=== PATIENT | female | born 1995 | race Caucasian/White ===

== ENCOUNTER → 2022-02-17 17:56 | Observation (INO) ==
[2022-02-17 13:23] LABS: Basophils % 0.3 %; Eosinophils # 0.5 K/mcL (0.0-0.6); Hematocrit 27.3 % (35.3-44.9); Hemoglobin 8.3 g/dL (11.5-15.4); Immature Granulocytes % 0.3 % (0-4); Lymphocytes # 2.1 K/mcL (0.6-4.6); Lymphocytes % 18.1 %; Mean Corpuscular HGB Conc 30.4 g/dL (31.6-35.5); Mean Corpuscular Hemoglobin 24.3 pg (28.0-33.3); Mean Corpuscular Volume 80.1 fL (83.0-100.0); Mean Platelet Volume 10.8 fL (9.4-12.4); Monocytes # 0.8 K/mcL (0.0-1.3); Monocytes % 6.5 %; Neutrophils # 8.1 K/mcL (1.6-8.9); Platelet Count 194 K/mcL (140-400); Red Blood Count 3.41 M/mcL (3.82-4.97); Red Cell Distribution Width 13.4 % (11.5-14.5); Segmented Neutrophils % 70.8 %; White Blood Count 11.5 K/mcL (4.3-11.1)
[2022-02-17 13:57] LABS: Alanine Aminotransferase 8 Units/L (7-52); Aspartate Amino Transferase 14 Units/L (13-39); BUN/Creatinine Ratio 20 (6-26); Blood Urea Nitrogen 9 mg/dL (6-20); Lactate Dehydrogenase 125 Units/L (140-271); Uric Acid 3.4 mg/dL (2.3-7.6); eGFR For African Americans > 60 (> 60); eGFR For Non-African Americans > 60 (> 60)
[2022-02-17 13:58] LABS: Protein/Creatinine Ratio,Urine 0.22 mg/mg (0.00-0.20)
[~2022-02-17 17:56] MED LIST: Ringers Solution, Lactated 1,000 ML IVC ONE; Sodium Ferric Gluconat/Sucrose 125 MG in 0.9 % Sodium Chloride 100 ML IVPB ONE
== END | disposition home or self-care (01) ==
LOC: 1NENULAB
PROVIDERS: ADMIT Obstetrics & Gynecology; ATTEND Obstetrics & Gynecology

== ENCOUNTER 2022-02-23 11:36 | Inpatient (IN) ==
[2022-02-23] MEDS ORDERED: Naloxone 0.4 MG/ML INJ IVP PRN (12:06)
[2022-02-23] MEDS ORDERED: Azithromycin 500 MG in 0.9 % Sodium Chloride 250 ML IVPB PRN (12:06)
[2022-02-23] MEDS ORDERED: Famotidine 20 MG/2 ML VIAL IVP PRN (12:06)
[2022-02-23] MEDS ORDERED: Metoclopramide 10 MG/2 ML VIAL IVP PRN (12:06)
[2022-02-23] MEDS ORDERED: Ringers Solution, Lactated 1,000 ML IVC SCH (12:15)
[2022-02-23] MEDS ORDERED: EPHEDrine 50 MG/ML VIAL IVP PRN (12:30)
[2022-02-23] MEDS ORDERED: Epidural Premix (fent/bupiv) 110 ML EP SCH (12:30)
[2022-02-23 12:58] LABS: Basophils % 0.2 %; Eosinophils # 0.1 K/mcL (0.0-0.6); Eosinophils % 1.4 %; Hematocrit 29.1 % (35.3-44.9); Hemoglobin 9.1 g/dL (11.5-15.4); Immature Granulocytes % 0.3 % (0-4); Lymphocytes % 21.8 %; Mean Corpuscular HGB Conc 31.3 g/dL (31.6-35.5); Mean Corpuscular Hemoglobin 25.1 pg (28.0-33.3); Mean Corpuscular Volume 80.4 fL (83.0-100.0); Monocytes # 0.6 K/mcL (0.0-1.3); Monocytes % 5.9 %; Neutrophils # 6.5 K/mcL (1.6-8.9); Platelet Count 202 K/mcL (140-400); Red Blood Count 3.62 M/mcL (3.82-4.97); Red Cell Distribution Width 14.6 % (11.5-14.5); Segmented Neutrophils % 70.4 %; White Blood Count 9.3 K/mcL (4.3-11.1)
[2022-02-23] MEDS ORDERED: miSOPROStoL 25 MCG TABLET PO PRN (13:14)
[2022-02-23 13:16] LABS: Alanine Aminotransferase 9 Units/L (7-52); Aspartate Amino Transferase 12 Units/L (13-39); BUN/Creatinine Ratio 20 (6-26); Blood Urea Nitrogen 9 mg/dL (6-20); Lactate Dehydrogenase 114 Units/L (140-271); Uric Acid 6.3 mg/dL (2.3-7.6); eGFR For African Americans > 60 (> 60); eGFR For Non-African Americans > 60 (> 60)
[2022-02-23 13:31] LABS: Amphetamine Screen,Urine Negative ng/mL (Cutoff=1000); Barbiturate Screen,Urine Positive ng/mL (Cutoff=200); Benzodiazepines Screen,Urine Negative ng/mL (Cutoff=200); Cannabinoid Screen,Urine Positive ng/mL (Cutoff = 50); Cocaine Screen,Urine Negative ng/mL (Cutoff= 300); Opiate Screen,Urine Negative ng/mL (Cutoff=300); Phencyclidine Screen,Urine Negative ng/mL (Cutoff=25)
[2022-02-23 14:28] LABS: Creatinine,Urine 121 mg/dL; Protein/Creatinine Ratio,Urine 0.15 mg/mg (0.00-0.20)
[2022-02-23] MEDS ORDERED: Oxytocin 30 UNIT/503 ML BAG IVC ONE (19:50)
[2022-02-23] MEDS ORDERED: Oxytocin 30 UNIT/503 ML BAG IVC SCH (23:23)
[2022-02-23] MEDS ORDERED: Ondansetron ODT 4 MG TAB.RAPDIS SL PRN (23:23)
[2022-02-23] MEDS ORDERED: Rho Immune Globulin 1,500 UNIT SYRINGE IM PRN (23:23)
[2022-02-23] MEDS ORDERED: Measles/Mumps/Rubella Vacc 0.5 ML VIAL SQ PRN (23:23)
[2022-02-23] MEDS ORDERED: Benzocaine/Menthol 56 GM AEROSOL SPRAY TP PRN (23:23)
[2022-02-23] MEDS ORDERED: Lanolin 7 G OINT...G. TP PRN (23:23)
[2022-02-24] MEDS: Acetaminophen 325 MG TABLET PO SCH ×4 (00:18→22:33)
[2022-02-24] MEDS: Ibuprofen 600 MG TABLET PO SCH ×4 (00:19→22:34)
[2022-02-24 03:39] LABS: Basophils % 0.2 %; Eosinophils # 0.1 K/mcL (0.0-0.6); Eosinophils % 0.3 %; Hematocrit 26.3 % (35.3-44.9); Hemoglobin 8.1 g/dL (11.5-15.4); Immature Granulocytes % 0.5 % (0-4); Lymphocytes # 1.7 K/mcL (0.6-4.6); Lymphocytes % 11.2 %; Mean Corpuscular HGB Conc 30.8 g/dL (31.6-35.5); Mean Corpuscular Hemoglobin 24.8 pg (28.0-33.3); Mean Corpuscular Volume 80.7 fL (83.0-100.0); Mean Platelet Volume 11.5 fL (9.4-12.4); Monocytes # 0.9 K/mcL (0.0-1.3); Monocytes % 5.6 %; Platelet Count 224 K/mcL (140-400); Red Blood Count 3.26 M/mcL (3.82-4.97); Red Cell Distribution Width 14.5 % (11.5-14.5); Segmented Neutrophils % 82.2 %
[2022-02-24 03:40] LABS: Neutrophils # 12.7 K/mcL (1.6-8.9); White Blood Count 15.4 K/mcL (4.3-11.1)
[2022-02-24] MEDS ORDERED: Prenatal Vit/FA 1 EACH TABLET PO SCH (09:00)
[2022-02-24] MEDS ORDERED: Acetaminophen/Butalbital/CaffeineTABLET PO PRN (09:17)
[2022-02-24] MEDS ORDERED: *HR* Buprenorphine HCl 8 MG TAB.SUBL SL SCH (11:00)
[2022-02-24] MEDS ORDERED: BUPRENORPHINE HCL 2 MG SL SCH (11:00)
[2022-02-24 20:08] VITALS: BP 110/56; PULSE 89; TEMP 98.3; O2SAT 97
== END 2022-02-24 22:35 | disposition home or self-care (01) | DRG 560 ==
LOC: 1NENULAB 11:36 → 1NENUOBS 23:22
PROVIDERS: ADMIT Student in an Organized Health Care Education/Training Program; ATTEND Student in an Organized Health Care Education/Training Program